=== PATIENT | female | born 1940 | race Caucasian/White ===

== ENCOUNTER 2017-03-10 15:09 | Emergency (ER) | payer MEDICARE, BC ==
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
--- NOTE | 2017-03-10 16:45 | Diagnostic Imaging Report ---
[facility] [address] [facility].[address] [address] Report Submission Date: Mar 10, 2017 4:34:43 PM CDT Patient Study Name: MERON CRAFT Date: Mar 10, 2017 3:48:21 PM CDT Modality Type: US Gender: F Description: BILAT US DVT : 36 Institution: [facility] Physician: PILLO LEWIS - ER Examination: Ultrasound vein History: Leg discomfort Findings: Sonographic evaluation of the lower extremity venous system from the groin to the popliteal fossa inclusive Bilaterally. Normal compressibility. No luminal filling defect. Normal waveforms and response to augmentation. No popliteal region fluid collection. Impression: No evidence for deep venous thrombosis. Electronically signed on Mar 10, 2017 4:34:43 PM CDT by: Bhavin [place]
[2017-03-10 17:08] VITALS: BP 135/81
== END 2017-03-10 17:05 ==
LOC: ED 15:09
DX: M79.605 Pain in left leg (principal)
CPT/HCPCS: 93970; 99283